=== PATIENT | male | born 1950 | race Caucasian/White ===

== ENCOUNTER 2018-05-03 08:57 | Day surgery (SDC) | payer BC, SELFPAY ==
--- NOTE | 2018-05-02 18:45 | POEE_ITS ---
History of Present Illness Chief Complaint: Progressive decreased vision, right eye Narrative: Patient is a 67-year old male with history of epiretinal membrane of the right eye who has noted progressive decreased vision in both eyes at both distance and near over the past year. On examination he was noted to have moderate bilateral nuclear and cortical cataracts with best corrected vision of 20/50 right eye, 20/40 left eye. In the right eye there is an epiretinal membrane with some macular thickening. The option of cataract surgery was offered to the patient and he wished to proceed. He understands that postoperative visual acuity will be limited by the presence of his pre-existing epiretinal membrane. 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 Consideration was given to implanting a toric intraocular lens implant, but due to his epiretinal membrane he is unlikely to enjoy the full benefits of the toric IOL. In addition, should he require further surgery to correct his epiretinal membrane, his astigmatism could change. In addition, the axis of his astigmatism was variable among his current eyeglass prescription and multiple testing devices. NOTE: The Chief Complaint, HPI, Past Medical History, Past Surgical History, Family History, Social History, Medications, and complete Ophthalmic Exam with detailed Assessment and Plan have already been documented in the patient's outpatient ophthalmic record and are not covered again in detail here. [facility] Medical History Cortical cataract of right eye (Acute) Nuclear sclerotic cataract of right eye (Acute) Epiretinal membrane (ERM) of right eye (Chronic) Social History Smoking/Tobacco Use Status: Never Meds Home Medications Medication Instructions Recorded Confirmed Type atorvastatin 10 mg PO DAILY 05/01/18 05/01/18 History finasteride 5 mg PO DAILY 05/01/18 05/01/18 History Allergies Allergy/AdvReac Type Severity Reaction Status Date / Time pollen extracts Allergy Verified 05/01/18 10:30 Exam OCULAR EXAM:: Most recent ocular examination reveals visual acuity of 20/200 right eye, 20/40 left eye. Her ocular pressure was 14 OD, 16 OS. Pupils dilate to 5.5 mm OU. A 2+ nuclear with 1+ cortical cataract is present OU. Extraocular motility was normal. Pupils equal, round, and reactive without afferent pupillary defect dilated funduscopic examination reveals disc cupping of 0.45 OU with good color. There is an epiretinal membrane with macular thickening in the right eye. In the left eye the retinal vasculature and macula as well as peripheral retina is normal. BRIGHTNESS ACUITY TESTING (BAT):: Brightness acuity testing of the right eye off 20/200. Low medium and high is 20/300. Assessment and Plan (1) Nuclear sclerotic cataract of right eye: Current visit: No Status: Acute Assessment: Visually significant cataract, right eye. Plan: Cataract extraction with intraocular lens implantation, right eye (2) Cortical cataract of right eye: Current visit: No Status: Acute Assessment: Visually significant cataract, right eye. Plan: Cataract extraction with intraocular lens implantation, right eye Note: NOTE:: The details of the planned surgery, including the risks, indications,limitations,expectations,outcome and possible complications were explained to the patient. The patient understands the complications including, but not limited to: infection, hemorrhage, posterior dislocation of the lens or nuclear fragments which may require the intervention of a vitreoretinal surgeon, possible loss of the eye, or from anesthetic complications. The patient has been made aware of the option of not having surgery, that vision following surgery may not be equal to that prior to surgery, and that the planned surgery may not achieve the intended results. Following this discussion, which the patient appeared to understand, the patient wishes to proceed with cataract surgery with lens implantation of the affected eye to improve and maximize vision.
[2018-05-03] MEDS: Tetracaine 0.5% 4 ML BTL OD ×4 (09:21→11:09)
[2018-05-03] MEDS: Tropicam./Phenyleph. (1/2.5%) 5 ML BTL OD ×3 (09:23→09:34)
[2018-05-03 09:27] VITALS: BP 132/82; PULSE 64; RESP 16; TEMP 36.4; O2SAT 98
[2018-05-03] MEDS: Lidocaine 2% Jelly 6 ML SYR (11:09)
[2018-05-03] MEDS: Lidocaine 1% Pres-Free 5 ML VIAL (11:16)
[2018-05-03] MEDS: Balanced Salt Soln.-PLUS 500 ML BAG (11:17)
[2018-05-03] MEDS: Povidone-Iodine Ophth 30 ML BTL (11:47)
[2018-05-03] MEDS: Triamcinolone 40 MG/ML VIAL (11:47)
--- NOTE | 2018-05-03 11:58 | W.PM.DSUDISC ---
Discharge Plan Discharge Details Attending Provider: Russell Frost Primary Care Provider: Vianca Cochran Home Meds and New Rx's Prescriptions: No Action atorvastatin 10 mg Tablet 10 mg PO DAILY RF: 0 finasteride 5 mg Tablet 5 mg PO DAILY RF: 0 Discharge Instructions Stand Alone Forms: Post-op Topical Cataract, Ronda Phillips (DSU) DS: Diagnosis Discharge Diagnosis (1) Status post cataract extraction and insertion of intraocular lens of right eye: Status: Chronic
--- NOTE | 2018-05-03 11:59 | W.PM.OP ---
Date of service: 05/03/18 Time of Service: 11:59 Operative Note PRE-OP DIAGNOSIS: Cataract, right eye PROCEDURE: Cataract extraction using phacoemulsification with intraocular lens implant, right eye SURGEON: Russell Frost ANESTHESIA: MAC and local (sub-tenon's anesthetic infiltration) ESTIMATED BLOOD LOSS: 0 PATHOLOGY: none sent COMPLICATIONS: None Patient was transported to: same day Patient's condition: stable Implants: Oskar [employer]skar [employer] / [employer] Tecnis ZCB00 intraocular lens Indications: Progressive decreased vision due to cataract, right eye Procedure Description: CATARACT SURGERY OPERATIVE REPORT PREOPERATIVE DIAGNOSIS: Nuclear/cortical cataract, right eye POSTOPERATIVE DIAGNOSIS: Same OPERATION: Cataract extraction using phacoemulsification with posterior chamber intraocular lens implant, right eye. IOL: IOL Forensic Science Technician/Model: [employer]J Vision / LORENZO Tecnis ZCB00 IOL Power: + 16.50 diopters IOL Serial Number: [id number] Optic Diameter: 6.0mm Haptic/Overall Diameter: 13.0mm PHACO INFO: ZacariasJivoxon Vision System with OZil and Active Fluidics Cumulative Dispersed Energy (CDE): 23.04 seconds SURGEON: Russell Frost MD, MINH ANESTHESIA: Monitored Anesthesia Care (MAC), with local sub-tenon's anesthetic infiltration COMPLICATIONS: None SPECIMENS: None INDICATIONS FOR PROCEDURE: The patient is a 67-year-old gentleman with history of symptomatic bilateral cataract, right eye worse than left. Patient has become progressively worse. Of note, he has a significant epiretinal membrane of the right eye with macular thickening. The option of cataract surgery was offered to the patient and he wished to proceed, understanding that postoperative visual acuity will be limited by the presence of his pre-existing maculopathy. PROCEDURE: The correct surgical eye was identified and marked as the right eye and the pupil was dilated in the preoperative area using mydriatics and cycloplegics. The dilated pupil size was 6.5 mm. Oral sedation was administered in the form of an Imprimis MKO Melt (midazolam 3mg/ketamine 25mg/ondansetron 2mg). The patient was brought to the operating room where cardiopulmonary monitoring was instituted and surgical time-out was performed, confirming the correct operative eye and IOL power. Topical anesthesia was administered and ophthalmic povidone-iodine 5% was instilled into the conjunctival fornices. Lidocaine gel was applied to the cornea and the bernie-ocular area was prepped with Betadine 10% solution and draped in the usual sterile fashion for intraocular surgery, including an aperture drape. A Tegaderm transparent film dressing was cut in half and used to cover the lashes and lid margins. Care was taken to sequester the lashes and lid margins under the Tegaderm dressing. A lid speculum was placed between the lids of the operative eye and the Peggy-Waylon operating microscope was maneuvered into position. Marlon scissors were then used to make a conjunctival buttonhole approximately 6mm posterior to the limbus in the inferonasal quadrant. Blunt dissection was carried out to expose bare sclera, and a blunt-tipped sub-tenon?s anesthesia cannula was introduced and passed posteriorly along the globe where non-preserved plain lidocaine was injected into posterior sub-Tenon?s space. A sideport knife was used to make a paracentesis port inferiortemporally, and the anterior chamber was filled with Healon GV. A 2.4mm keratome knife was used to create a half-thickness groove at the limbus and then to construct a three-plane near-clear corneal tunnel extending 2.0mm into clear cornea in the superiortemporal position. . A flap was raised on the anterior capsule and capsulorhexis forceps were used to complete a continuous curvilinear capsulorhexis of 5.0 mm. Balanced salt solution was then used to perform cortical cleaving hydrodissection and nuclear hydrodelineation until the lens could be freely rotated within the capsular bag. The lens nucleus was then disassembled and removed within the capsular bag and iris plane using phacoemulsification. The pupil was noted to slowly constricted during phacoemulsification to approximately 4 mm, making visualization difficult. Residual cortical material was removed using the 45-degree angled silicone I/A tip with 0.3mm port. The posterior capsule was carefully polished to remove as much residual lens epithelial cells as safely possible. The capsular bag was then inflated and the anterior chamber deepened with viscoelastic. The lens implant described above was inserted into the capsular bag using the LORENZO [place] Injector. A Kuglen hook was used to dial the IOL into position. Residual viscoelastic was then removed first from posterior to the IOL, then from the anterior chamber using the I/A handpiece. The lens implant was noted to center nicely within the capsular bag. The incisions were stromally hydrated, and the anterior chamber was reformed using BSS. Then 0.4cc of moxifloxacin 1.5mg/ml were injected into the capsular bag and anterior chamber. The incisions were checked with a Weck spear and found to be secure. Then, a combination of 20 mg of triamcinolone and 2.5 mg of moxifloxacin in a total volume of 1 cc was injected into posterior sub-tenon's space using the sub-tenon's anesthesia cannula. Several drops of ophthalmic povidone-iodine 5% were then applied to the eye followed by two drops of Imprimis combination moxifloxacin/dexamethasone solution. The drapes were removed and a clear plastic protective eye shield was placed over the eye. The patient was then returned to Same Day Surgery in stable condition.
--- NOTE | 2018-05-03 12:03 | ROE_ITS ---
Date of service: 05/03/18 Time of Service: 11:59 Operative Note PRE-OP DIAGNOSIS: Cataract, right eye PROCEDURE: Cataract extraction using phacoemulsification with intraocular lens implant, right eye SURGEON: Russell Frost ANESTHESIA: MAC and local (sub-tenon's anesthetic infiltration) ESTIMATED BLOOD LOSS: 0 PATHOLOGY: none sent COMPLICATIONS: None Patient was transported to: same day Patient's condition: stable Implants: Oskar and Oskar Vision / [employer] Tecnis ZCB00 intraocular lens Indications: Progressive decreased vision due to cataract, right eye Procedure Description: CATARACT SURGERY OPERATIVE REPORT PREOPERATIVE DIAGNOSIS: Nuclear/cortical cataract, right eye POSTOPERATIVE DIAGNOSIS: Same OPERATION: Cataract extraction using phacoemulsification with posterior chamber intraocular lens implant, right eye. IOL: IOL Patient Scheduling Coordinator/Model: J&J Vision / LORENZO Tecnis ZCB00 IOL Power: + 16.50 diopters IOL Serial Number: [id number] Optic Diameter: 6.0mm Haptic/Overall Diameter: 13.0mm PHACO INFO: ZacariaseÇifton Vision System with OZil and Active Fluidics Cumulative Dispersed Energy (CDE): 23.04 seconds SURGEON: Russell Frost MD, MINH ANESTHESIA: Monitored Anesthesia Care (MAC), with local sub-tenon's anesthetic infiltration COMPLICATIONS: None SPECIMENS: None INDICATIONS FOR PROCEDURE: The patient is a 67-year-old gentleman with history of symptomatic bilateral cataract, right eye worse than left. Patient has become progressively worse. Of note, he has a significant epiretinal membrane of the right eye with macular thickening. The option of cataract surgery was offered to the patient and he wished to proceed, understanding that postoperative visual acuity will be limi jadon by the presence of his pre-existing maculopathy. PROCEDURE: The correct surgical eye was identified and marked as the right eye and the pupil was dilated in the preoperative area using mydriatics and cycloplegics. The dilated pupil size was 6.5 mm. Oral sedation was administered in the form of an Imprimis MKO Melt (midazolam 3mg/ketamine 25mg/ondansetron 2mg). The patient was brought to the operating room where cardiopulmonary monitoring was instituted and surgical time-out was performed, confirming the correct operative eye and IOL power. Topical anesthesia was administered and ophthalmic povidone-iodine 5% was instilled into the conjunctival fornices. Lidocaine gel was applied to the cornea and the bernie-ocular area was prepped with Betadine 10% solution and draped in the usual sterile fashion for intraocular surgery, including an aperture drape. A Tegaderm transparent film dressing was cut in half and used to cover the lashes and lid margins. Care was taken to sequester the lashes and lid margins under the Tegaderm dressing. A lid speculum was placed between the lids of the operative eye and the Peggy-Waylon operating microscope was maneuvered into position. Marlon scissors were then used to make a conjunctival buttonhole approximately 6mm posterior to the limbus in the inferonasal quadrant. Blunt dissection was carried out to expose bare sclera, and a blunt-tipped sub-tenon?s anesthesia cannula was introduced and passed posteriorly along the globe where non- preserved plain lidocaine was injected into posterior sub-Tenon?s space. A era eport knife was used to make a paracentesis port inferiortemporally, and the anterior chamber was filled with Healon GV. A 2.4mm keratome knife was used to create a half-thickness groove at the limbus and then to construct a three-plane near-clear corneal tunnel extending 2.0mm into clear cornea in the superiortemporal position. . A flap was raised on the anterior capsule and capsulorhexis forceps were used to complete a continuous curvilinear capsulorhexis of 5.0 mm. Balanced salt solution was then used to perform cortical cleaving hydrodissection and nuclear hydrodelineation until the lens could be freely rotated within the capsular bag. The lens nucleus was then disassembled and removed within the capsular bag and iris plane using phacoemulsification. The pupil was noted to slowly constricted during phacoemulsification to approximately 4 mm, making visualization difficult. Residual cortical material was removed using the 45-degree angled silicone I/A tip with 0.3mm port. The po sterior capsule was carefully polished to remove as much residual lens epithelial cells as safely possible. The capsular bag was then inflated and the anterior chamber deepened with viscoelastic. The lens implant described above was inserted into the capsular bag using the LORENZO [place] Injector. A Kuglen hook was used to dial the IOL into position. Residual viscoelastic was then removed first from posterior to the IOL, then from the anterior chamber using the I/A handpiece. The lens implant was noted to center nicely within the capsular bag. The incisions were stromally hydrated, and the anterior chamber was reformed using BSS. Then 0.4cc of moxifloxacin 1.5mg/ml were injected into the capsular bag and anterior chamber. The incisions were checked with a Weck spear and found to be secure. Then, a combination of 20 mg of triamcinolone and 2.5 mg of moxifloxacin in a total volume of 1 cc was injected into posterior sub-tenon's space using the sub- tenon's anesthesia cannula. Several drops of ophthalmic povidone-iodine 5% were then applied to the eye followed by two drops of Imprimis combination moxifloxacin/dexamethasone solution. The drapes were removed and a clear plastic protective eye shield was placed over the eye. The patient was then returned to Same Day Surgery in stable condition.
[2018-05-03 12:20] VITALS: BP 139/84; PULSE 65; RESP 16; TEMP 36.1; O2SAT 96
== END 2018-05-03 12:30 | disposition home or self-care (01) ==
LOC: SUR 08:58
PROVIDERS: PCP Internal Medicine; Visit Provider Ophthalmology
PROC: (CPT 66984; principal; 2018-05-03 11:30)
DX: H25.813 Combined forms of age-related cataract, bilateral (principal); I10 Essential (primary) hypertension
CPT/HCPCS: 66984; V2632

== ENCOUNTER 2018-05-17 07:59 | Day surgery (SDC) | payer BC, MEDICARE, SELFPAY ==
--- NOTE | 2018-05-16 19:08 | POEE_ITS ---
History of Present Illness Chief Complaint: Progressive decreased vision, left eye Narrative: The patient is a 67-year old male who presented with complaints of progressive decreased vision in both eyes at both distance and near. He also noted difficulty with halos around lights. On examination he was noted to have moderate bilateral nuclear and cortical cataracts with myopic astigmatism. He was also noted to have an epiretinal membrane in the right eye with some macular thickening. He underwent cataract surgery in the right eye on 05/03/2018. Postoperatively best corrected vision is 20/30 in the right eye, limited by the presence of his pre-existing maculopathy. He now presents for cataract surgery in the left eye. NOTE: The Chief Complaint, HPI, Past Medical History, Past Surgical History, Family History, Social History, Medications, and complete Ophthalmic Exam with detailed Assessment and Plan have already been documented in the patient's outpatient ophthalmic record and are not covered again in detail here. [facility] Medical History Cortical cataract of left eye (Acute) Nuclear sclerotic cataract of left eye (Acute) Epiretinal membrane (ERM) of right eye (Chronic) Cortical cataract of right eye (Resolved) Nuclear sclerotic cataract of right eye (Resolved) Surgical History Status post cataract extraction and insertion of intraocular lens of right eye (Chronic 05/03/18) Social History Smoking/Tobacco Use Status: Never Meds Home Medications Medication Instructions Recorded Confirmed Type atorvastatin 10 mg PO DAILY 05/01/18 05/03/18 History finasteride 5 mg PO DAILY 05/01/18 05/03/18 History Allergies Allergy/AdvReac Type Severity Reaction Status Date / Time pollen extracts Allergy Verified 05/03/18 09:25 Exam OCULAR EXAM:: Most recent ocular examination reveals best corrected vision of 20/30 right eye, 20/30 left eye. Intraocular pressure is 18 OD, 16 OS. Pupils equal, round, and reactive without afferent pupillary defect. Extraocular motility is normal. Slit-lamp examination is significant for a well-positioned PCIOL with clear posterior capsule in the right eye. Pupils dilate to 5.5 mm 2+ nuclear with 1+ cortical cataract is present OS. Dilated funduscopic examination shows disc cupping of 0.45 OU with normal vessels. There is an epiretinal membrane with macular thickening in the right eye. The left macula is normal. The peripheral retina and vitreous is normal. BRIGHTNESS ACUITY TESTING (BAT):: Brightness acuity testing of the left eye off 20/30. Brightness acuity testing on low medium and high is 20/50. Assessment and Plan (1) Nuclear sclerotic cataract of left eye: Current visit: No Status: Acute Assessment: Visually significant cataract, left eye. Plan: Cataract extraction with intraocular lens implantation, left eye (2) Cortical cataract of left eye: Current visit: No Status: Acute Assessment: Visually significant cataract, left eye. Plan: Cataract extraction with intraocular lens implantation, left eye Note: NOTE:: The details of the planned surgery, including the risks, indications,limitations,expectations,outcome and possible complications were explained to the patient. The patient understands the complications including, but not limited to: infection, hemorrhage, posterior dislocation of the lens or nuclear fragments which may require the intervention of a vitreoretinal surgeon, possible loss of the eye, or from anesthetic complications. The patient has been made aware of the option of not having surgery, that vision following surgery may not be equal to that prior to surgery, and that the planned surgery may not achieve the intended results. Following this discussion, which the patient appeared to understand, the patient wishes to proceed with cataract surgery with lens implantation of the affected eye to improve and maximize vision.
--- NOTE | 2018-05-16 19:12 | W.PM.DSUDISC ---
Discharge Plan Discharge Details Attending Provider: Russell Frost Primary Care Provider: Vianca Cochran Home Meds and New Rx's Prescriptions: No Action atorvastatin 10 mg Tablet 10 mg PO DAILY RF: 0 finasteride 5 mg Tablet 5 mg PO DAILY RF: 0 Discharge Instructions Stand Alone Forms: Post-op Topical Cataract, Ronda Phillips (DSU) DS: Diagnosis Discharge Diagnosis (1) Status post cataract extraction and insertion of intraocular lens of left eye: Status: Chronic
--- NOTE | 2018-05-16 19:13 | W.PM.OP ---
Date of service: 05/17/18 Operative Note DATE OF PROCEDURE: 05/17/18 PRE-OP DIAGNOSIS: Cataract, left eye, with corneal astigmatism POST-OP DIAGNOSIS: same SURGEON: Russell Frost ANESTHESIA: MAC (with local sub-tenon's anesthetic injection) PATHOLOGY: none sent COMPLICATIONS: None Patient was transported to: same day Patient's condition: stable Implants: [employer] / LORENZO Tecnis ZCT Toric Intraocular Lens Indications: Progressive decreased vision due to cataract, left eye, with corneal astigmatism Procedure Description: CATARACT SURGERY OPERATIVE REPORT PREOPERATIVE DIAGNOSIS: Nuclear/cortical cataract, left eye POSTOPERATIVE DIAGNOSIS: Same OPERATION: Cataract extraction using phacoemulsification with posterior chamber toric intraocular lens implant, left eye. 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 He also has a significant epiretinal membrane with macular thickening in the right eye. He underwent cataract surgery in the right eye on 05/03/2018 with a monofocal intraocular lens implant. Postoperatively he has regained best corrected vision of 20/30 in the right eye, likely limited by the presence of his pre-existing epiretinal membrane. He now presents for cataract surgery with toric intraocular lens implantation of the left eye. PROCEDURE: The correct surgical eye was identified and marked as the left eye and the pupil was dilated in the preoperative area using mydriatics and cycloplegics. The dilated pupil size was 7.0 mm. With the patient in the seated position, topical anesthetic was applied and a surgical marker was used to clara the limbus at 6:00. A Surgilum Robomarker was then used to clara the 0/180 degree reference axis. Oral sedation was administered in the form of an Imprimis MKO Melt (midazolam 3mg/ketamine 25mg/ondansetron 2mg). The patient was brought to the operating room where cardiopulmonary monitoring was instituted and surgical time-out was performed, confirming the correct operative eye and IOL power. Topical anesthesia was administered and ophthalmic povidone-iodine 5% was instilled into the conjunctival fornices. Lidocaine gel was applied to the cornea and the bernie-ocular area was prepped with Betadine 10% solution and draped in the usual sterile fashion for intraocular surgery, including an aperture drape. A Tegaderm transparent film dressing was cut in half and used to cover the lashes and lid margins. Care was taken to sequester the lashes and lid margins under the Tegaderm dressing. A lid speculum was placed between the lids of the operative eye and the Peggy-Waylon operating microscope was maneuvered into position. Marlon scissors were then used to make a conjunctival buttonhole approximately 6mm posterior to the limbus in the inferonasal quadrant. Blunt dissection was carried out to expose bare sclera, and a blunt-tipped sub-tenon?s anesthesia cannula was introduced and passed posteriorly along the globe where non-preserved plain lidocaine was injected into posterior sub-Tenon?s space. A corneal ring gauge and axis marker were then used to clara the 004 degree position for the main phaco incision, and the 004/184 degree axis for alignment of the toric IOL. A sideport knife was used to make a paracentesis port superior/superiortemporally, and the anterior chamber was filled with Healon GV. A 2.4mm keratome knife was used to create a half-thickness groove at the limbus and then to construct a three-plane near-clear corneal tunnel extending 2.0mm into clear cornea at the 004 degree axis. . A flap was raised on the anterior capsule and capsulorhexis forceps were used to complete a continuous curvilinear capsulorhexis of 5.0 mm. Balanced salt solution was then used to perform cortical cleaving hydrodissection and nuclear hydrodelineation until the lens could be freely rotated within the capsular bag. The lens nucleus was then disassembled and removed within the capsular bag and iris plane using phacoemulsification. The pupil constricted to 4 mm during phacoemulsification, making visualization difficult. Residual cortical material was removed using the 45-degree angled silicone I/A tip with 0.3mm port. The posterior capsule was carefully polished to remove as much residual lens epithelial cells as safely possible. The capsular bag was then inflated and the anterior chamber deepened with viscoelastic. The lens implant described above was inserted into the capsular bag using the LORENZO [place] Injector. A Kuglen hook was used to dial the IOL into position, about 10 degrees counterclockwise of its final alignment. Residual viscoelastic was then removed first from posterior to the IOL, then from the anterior chamber using the I/A handpiece. The I/A handpiece was then used to dial the IOL to the target axis. The pupillary margin was retracted using the Kuglen hook, and the lens implant was noted to center nicely within the capsular bag, with the toric IOL oates aligned at the 004/184 degree axis. The incisions were stromally hydrated, and the anterior chamber was reformed using BSS. Then 0.4cc of moxifloxacin 1.5mg/ml were injected into the capsular bag and anterior chamber. The incisions were checked with a Weck spear and found to be secure. Several drops of ophthalmic povidone-iodine 5% were then applied to the eye followed by two drops of Imprimis combination moxifloxacin/dexamethasone solution. The drapes were removed and a clear plastic protective eye shield was placed over the eye. The patient was then returned to [facility] in stable condition.
[2018-05-17] MEDS: Tropicam./Phenyleph. (1/2.5%) 5 ML BTL OS ×3 (08:25→08:50)
[2018-05-17] MEDS: Tetracaine 0.5% 4 ML BTL OS ×4 (08:25→10:31)
[2018-05-17 08:28] VITALS: BP 147/86; PULSE 61; RESP 16; TEMP 35.8; O2SAT 96
[2018-05-17] MEDS: Lidocaine 2% Jelly 6 ML SYR (10:20)
[2018-05-17] MEDS: Lidocaine 1% Pres-Free 5 ML VIAL (10:28)
[2018-05-17] MEDS: Balanced Salt Soln.-PLUS 500 ML BAG (10:31)
[2018-05-17] MEDS: Povidone-Iodine Ophth 30 ML BTL (10:34)
[2018-05-17 11:30] VITALS: BP 130/78; PULSE 65; RESP 16; TEMP 36; O2SAT 94
== END 2018-05-17 11:40 | disposition home or self-care (01) ==
LOC: SUR 08:00
PROVIDERS: PCP Internal Medicine; Visit Provider Ophthalmology
PROC: (CPT 66984; principal; 2018-05-17 10:30)
DX: H25.812 Combined forms of age-related cataract, left eye (principal); H52.202 Unspecified astigmatism, left eye; Z98.41 Cataract extraction status, right eye; Z96.1 Presence of intraocular lens; I10 Essential (primary) hypertension
CPT/HCPCS: 66984; V2632